=== PATIENT | male | born 1960 | race African-American/Black ===

== ENCOUNTER 2022-01-16 16:48 | Emergency (ER) | payer OTHER ==
[~2022-01-16] VITALS: Ht 190.5 cm; Wt 109.0 kg
[2022-01-16 17:00] VITALS: BP 199/114
== END 2022-01-16 18:25 ==
LOC: ER 16:48
DX: I10 Essential (primary) hypertension (principal); E78.00 Pure hypercholesterolemia, unspecified
CPT/HCPCS: 99283